=== PATIENT | male | born 1990 | race Caucasian/White ===

== ENCOUNTER 2018-01-24 06:00 | Emergency (ER) | payer OTHER ==
[~2018-01-24] VITALS: Ht 180.3 cm; Wt 83.0 kg
[2018-01-24] MEDS ORDERED: OXYC5 PO (06:17)
[2018-01-24] MEDS ORDERED: ASPI81 PO (06:17)
[2018-01-24] MEDS ORDERED: WARF5 PO (06:17)
[2018-01-24] MEDS ORDERED: PENI500T2 PO (06:17)
[2018-01-24] MEDS ORDERED: VITAD1000 PO (06:17)
[2018-01-24] MEDS ORDERED: DiphenhydrAMINE HCL 50 MG/ML VIAL IVP ONE (06:45)
[2018-01-24] MEDS ORDERED: FentaNYL CITRATE-PF 100 MCG/2 ML VIAL IVP ONE ×2 (06:45→09:00)
[2018-01-24 08:18] LABS: ANION GAP 8 mmol/L (8-16); CALCIUM, TOTAL 8.6 mg/dL (8.8-10.5); CARBON DIOXIDE 26 mmol/L (22-29); CHLORIDE 102 mmol/L (98-107); CREATININE 0.95 mg/dL (0.60-1.30); GLOMERULAR FILTR. RATE CALC > 60 mL/min (>60); GLUCOSE,RANDOM 86 mg/dL (70-110); POTASSIUM 4.3 mmol/L (3.5-5.1); SODIUM SERUM 136 mmol/L (136-145); UREA NITROGEN, BLOOD 15 mg/dL (7-18)
[2018-01-24 08:20] LABS: ALANINE AMINOTRANSFERASE 35 U/L (12-78); ALKALINE PHOSPHATASE 55 U/L (46-116); ASPARTATE AMINOTRANSFERASE 31 U/L (15-37); TOTAL PROTEIN, SERUM 7.4 g/dL (6.4-8.2)
[2018-01-24] MEDS ORDERED: IOVERSOL 350 MG/ML 150 ML VIAL ONE (08:24)
[2018-01-24 11:25] VITALS: BP 139/75
[2018-01-24] MEDS ORDERED: OxyCODONE HCL/ACETAMINOPHEN 5-325 MG TABLET PO ONE (11:30)
== END 2018-01-24 12:00 | disposition home or self-care (01) ==
LOC: EMS 06:02
DX: R07.89 Other chest pain (principal); I10 Essential (primary) hypertension
CPT/HCPCS: 36415; 71275; 80053; 84484; 93005; 93306; 96374; 96375; 96376; 99285; J1200; J3010; Q9967